=== PATIENT | male | born 1970 | race Caucasian/White ===

== ENCOUNTER 2019-10-01 11:34 | Emergency (ER) | payer OTHER ==
[2019-10-01 11:44] VITALS: RESP 16
[2019-10-01] MEDS ORDERED: HYDROmorphone 1 MG/ML 1 ML SYRINGE IM STA (11:57)
--- NOTE | 2019-10-01 12:13 | ED ---
Back Pain HPI - General Chief Complaint: Back Pain/Injury Stated Complaint: Back pain Time Seen by Provider: 10/01/19 11:36 Source: patient, EMS, RN notes reviewed Mode of arrival: EMS Limitations: no limitations - History of Present Illness Initial Comments: This a 48-year-old male presents emergency Department with chief complaint of low back pain. Patient states that 3 days ago he went to lift a desk and states that his family members helping move it states that they showed that forward causing it to twist his back. He states he felt the incident pop. Patient states he has severe low back pain with no history of back pain. Patient denies bowel bladder and incontinence or retention. Denies any abdominal pain. Patient states started Cipro for no relief of pain symptoms. Patient states she has some symptoms that radiate down his left leg to his knee. He denies any focal weakness states it's difficult to move secondary to pain. Patient states that his son is positive for chronic virus. Patient states that he does live at home with them patient's found to have fever but has no complaints of chest pain, shortness breath, headache or dizziness. - Related Data Previous Rx's Medication Instructions Recorded Cyclobenzaprine [Flexeril] 10 mg PO TID PRN #15 tab 10/01/19 HYDROcodone/APAP 7.5-325MG [[place] 1 tab PO Q6HR PRN 3 Days #12 tab 10/01/19 7.5-325] predniSONE 50 mg PO DAILY #5 tab 10/01/19 Allergies Allergy/AdvReac Type Severity Reaction Status Date / Time No Known Allergies Allergy Verified 10/01/19 11:45 Review of Systems ROS Statement: Those systems with pertinent positive or pertinent negative responses have been documented in the HPI. ROS Other: All systems not noted in ROS Statement are negative. Past Medical History Past Medical History: No Reported History History of Any Multi-Drug Resistant Organisms: None Reported Past Surgical History: Hernia Repair Past Psychological History: No Psychological Hx Reported Smoking Status: Current every day smoker Past Alcohol Use History: None Reported Past Drug Use History: None Reported General Exam Limitations: no limitations General appearance: alert, in no apparent distress Head exam: Present: atraumatic, normocephalic, normal inspection Eye exam: Present: normal appearance, PERRL, EOMI. Absent: scleral icterus, conjunctival injection, periorbital swelling ENT exam: Present: normal exam, normal oropharynx, mucous membranes moist Neck exam: Present: normal inspection, full ROM. Absent: tenderness, meningismus, lymphadenopathy Respiratory exam: Present: normal lung sounds bilaterally. Absent: respiratory distress, wheezes, rales, rhonchi, stridor Cardiovascular Exam: Present: regular rate, normal rhythm, normal heart sounds. Absent: systolic murmur, diastolic murmur, rubs, gallop, clicks GI/Abdominal exam: Present: soft, normal bowel sounds. Absent: distended, tenderness, guarding, rebound, rigid Extremities exam: Present: other (Lower extremity pulses equal bilaterally neurovascular intact equal color equal warmth) Back exam: Present: tenderness, muscle spasm, paraspinal tenderness, vertebral tenderness. Absent: full ROM Neurological exam: Present: alert, oriented X3, CN II-XII intact, reflexes normal. Absent: motor sensory deficit Skin exam: Present: warm, dry, intact, normal color. Absent: rash Course Vital Signs 10/01/19 11:42 Temperature 100.2 F H Pulse Rate 77 Respiratory 16 Rate Blood Pressure 113/78 O2 Sat by Pulse 96 Oximetry Medical Decision Making - Medical Decision Making 48-year-old male presented for low back pain. Patient had a lifting type injury. He has no red flag symptoms is neurovascularly intact. X-rays do not reveal any significant abnormality. Patient may have underlying disc herniation or disc bulging with mild radicular symptoms. I did discuss return parameters. Patient also found to have a fever most likely related to coronavirus in which his son is positive. We did discuss return parameters for this. He has no current complaints/chest pain, shortness breath, cough or any other associated symptoms. Disposition Clinical Impression: Lumbar radiculopathy, acute, Strain of lumbar region Disposition: HOME SELF-CARE Condition: Stable Instructions (If sedation given, give patient instructions): Acute Low Back Pain (ED) Additional Instructions: Please return to the Emergency Department if symptoms worsen or any other concerns. Prescriptions: Cyclobenzaprine [Flexeril] 10 mg PO TID PRN #15 tab PRN Reason: Muscle Spasm HYDROcodone/APAP 7.5-325MG [[place] 7.5-325] 1 tab PO Q6HR PRN 3 Days #12 tab PRN Reason: Pain predniSONE 50 mg PO DAILY #5 tab Is patient prescribed a controlled substance at d/c from ED?: Yes When asked, does pt state using other controlled substances?: No If prescribed controlled substance>3 days was MAPS reviewed?: Prescribed <3 Days If opioid is for acute pain is fill amount 7 days or less?: Yes If Rx opioid, was Start Talking consent form obtained?: Yes Referrals: None,Stated [Primary Care Provider] - 1-2 days Ce Thibodeaux, [Doctor of Osteopathic Medicine] - 1-2 days Time of Disposition: 13:15
[2019-10-01] MEDS ORDERED: DIAZEPAM 5 MG/ML 2 ML INJ IM STA (12:49)
--- NOTE | 2019-10-01 12:51 | XR ---
EXAMINATION TYPE: XR lumbosacral spine min 4V , 5 VIEWS DATE OF EXAM ORDERED: 10/01/2019 HISTORY: pain. COMPARISON: None. FINDINGS: There is a mild dextroscoliosis. Vertebral body height and alignment are maintained. There is no spondylolysis or spondylolisthesis. T he disc spaces are reasonably well-maintained. There is mild hypertrophic spondylosis present at L1-2 and L3-4. The facets are reasonably well-maintained. The pedicles are intact. IMPRESSION: 1. NO ACUTE OSSEOUS LESION. 2. MILD DEGENERATIVE CHANGE.
[2019-10-01] MEDS ORDERED: HYDROcodone/APAP 7.5-325MG 1 EACH TAB PO ONE (13:10)
[2019-10-01 13:22] VITALS: BP 136/72; PULSE 81; TEMP 99.8
== END 2019-10-01 13:28 | disposition home or self-care (01) ==
LOC: EC 11:34
DX: S39.012A Strain of muscle, fascia and tendon of lower back, initial encounter (principal); M54.16 Radiculopathy, lumbar region; R50.9 Fever, unspecified; Z20.828 Contact with and (suspected) exposure to other viral communicable diseases; F17.200 Nicotine dependence, unspecified, uncomplicated; X50.1XXA Overexertion from prolonged static or awkward postures, initial encounter; Y93.89 Activity, other specified
CPT/HCPCS: 72110; 99284; 96372 ×2; J3360; J1170

== ENCOUNTER 2019-10-10 08:14 | Emergency (ER) | payer SELFPAY ==
[2019-10-10] MEDS ORDERED: MORPHINE SULFATE 4 MG/ML SYRINGE IM STA (08:56)
--- NOTE | 2019-10-10 09:01 | XR ---
EXAMINATION TYPE: XR knee complete LT DATE OF EXAM: 10/10/2019 CLINICAL HISTORY: pain TECHNIQUE: Three views of the left knee are obtained. COMPARISON: None. FINDINGS: There is no acute fracture/dislocation. The tri-compartment joint spaces appear within no rmal limits. The overlying soft tissue appears unremarkable. IMPRESSION: There is no acute fracture or dislocation ICD 10 NO FRACTURE, INITIAL EVALUATION
--- NOTE | 2019-10-10 09:01 | ED ---
General Adult HPI - General Chief complaint: Extremity Injury, Lower Stated complaint: hip & knee pain Time Seen by Provider: 10/10/19 08:25 Source: patient, family Mode of arrival: wheelchair Limitations: no limitations - History of Present Illness Initial comments: Dictation was produced using [employer] dictation software. please excuse any grammatical, word or spelling errors. This patient was cared for during a federal and state declared state of emergency secondary to Covid 19 Chief Complaint: 48 yo M presents with left hip and knee pain 2 weeks. History of Present Illness: 48-year-old male who presents with left hip pain and left knee pain 2 weeks. Patient states that 2 weeks ago he was lifting a heavy desk. Patient states he lifted a really hard. While he was lifting a heavy object he noticed acute severe intense pain to his left hip and left knee. Patient states that he's been having this pain for the last 2 weeks. He was seen earlier in emergency department for back pain. She states that this morning with worsening symptoms. He states that most of his pain is to the medial left knee and over the left hip joint. It's worse he reports when he tries to bear weight. Patient denies any back pain. He does complain of some mild tingling to the lateral thigh. The ROS documented in this emergency department record has been reviewed and confirmed by me. Those systems with pertinent positive or negative responses have been documented in the HPI. All other systems are other negative and/or noncontributory. PHYSICAL EXAM: General Impression: Alert and oriented x3, acute distress secondary to pain HEENT: Normocephalic atraumatic, extra-ocular movements intact, pupils equal and reactive to light bilaterally, mucous membranes moist. Cardiovascular: Heart regular rate and rhythm Chest: Able to complete full sentences, no retractions, no tachypnea Abdomen: Bowel sounds present, abdomen soft, non-tender, non-distended, no organomegaly Musculoskeletal: Pulses present and equal in all extremities, no peripheral edema Left lower extremity: Intact range of motion of left hip with smooth internal an d external rotation. Knee flexion and extension is intact. Patient experiences pain with all movements of the left lower extremity. No joint effusion to the left knee. Skin of the lower extremity is intact. No sensory deficits. Motor: no focal deficits noted Neurological: CN II-XII grossly intact, no focal motor or sensory deficits noted Skin: Intact with no visualized rashes Psych: Normal affect and mood ED course: 48-year-old male presents with left hip and left knee pain ongoing for the last 2 weeks. She states the symptoms all started while he was lifting a desk. Signs upon arrival shows heart rate of 11, respiratory signs within acceptable limits. Physical examination of the left lower extremity appears benign. No concern for septic joint.X-ray of the hip and knee and pelvis shows no acute processes. Patient appeared clinically stable at this time. He states he feels improved after I am analgesia. Discussed with patient that he should follow-up with orthopedic surgery. Patient given contact information for on- call orthopedic surgeon Dr. Ferrell. He is told to call the office to schedule an appointment with a specialist. Patient given prescription for by mouth a nalgesia. Patient told to return to the emergency department or seek medical attention if he develops worsening symptoms especially fevers, constitutional symptoms or significantly worsening pain. Patient otherwise told to rest the joints. However he is told to stretch to prevent stiffness and maintain flexibility. - Related Data Previous Rx's Medication Instructions Recorded Cyclobenzaprine [Flexeril] 10 mg PO TID PRN #15 tab 10/01/19 HYDROcodone/APAP 7.5-325MG [[place] 1 tab PO Q6HR PRN 3 Days #12 tab 10/01/19 7.5-325] predniSONE 50 mg PO DAILY #5 tab 10/01/19 HYDROcodone/APAP 5-325MG [[place] 1 tab PO Q6HR PRN 3 Days #12 tab 10/10/19 5-325] Allergies Allergy/AdvReac Type Severity Reaction Status Date / Time No Known Allergies Allergy Verified 10/01/19 11:45 Review of Systems ROS Statement: Those systems with pertinent positive or pertinent negative responses have been documented in the HPI. ROS Other: All systems not noted in ROS Statement are negative. Past Medical History Past Medical History: No Reported History History of Any Multi-Drug Resistant Organisms: None Reported Past Surgical History: Hernia Repair Past Psychological History: No Psychological Hx Reported Smoking Status: Current every day smoker Past Alcohol Use History: None Reported Past Drug Use History: None Reported General Exam Limitations: no limitations Course Vital Signs 10/10/19 08:21 Temperature 97.8 F Pulse Rate 101 H Respiratory 24 Rate Blood Pressure 136/77 O2 Sat by Pulse 100 Oximetry Disposition Clinical Impression: Hip pain, Knee pain Disposition: HOME SELF-CARE Condition: Good Instructions (If sedation given, give patient instructions): Knee Pain (ED), Hip Pain (ED) Additional Instructions: Please contact orthopedic forensic identification specialist for outpatient appointment for evaluation of hip and knee pain. Prescriptions: HYDROcodone/APAP 5-325MG [[place] 5-325] 1 tab PO Q6HR PRN 3 Days #12 tab PRN Reason: Severe Pain Is patient prescribed a controlled substance at d/c from ED?: Yes If prescribed controlled substance>3 days was MAPS reviewed?: Prescribed <3 Days Referrals: Stewart Ferrell MD [STAFF PHYSICIAN] - 1-2 days Time of Disposition: 09:25
--- NOTE | 2019-10-10 09:02 | XR ---
EXAMINATION TYPE: XR Hip LT and AP Pelvis DATE OF EXAM: 10/10/2019 CLINICAL HISTORY: Pelvic and right hip pain. TECHNIQUE: A single AP view of the pelvis is obtained. Two views of the right hip are obtained. COMPARISON: None. FINDINGS: There is no acute fracture/dislocation evident in the pelvis. The hip and sacroiliac joints appear s ymmetric and unremarkable. The overlying soft tissue appears unremarkable.Two views of left hip show no acute fracture or dislocation. No focal lytic or sclerotic lesion seen in the proximal left femu r. The overlying soft tissue is unremarkable. IMPRESSION: There is no acute fracture or dislocation in the pelvis or left hip.
[2019-10-10] MEDS ORDERED: LIDOCAINE 5% PATCH TOPICAL STA (09:11)
[2019-10-10] MEDS ORDERED: ACET/COD 300 MG/30 MG STARTER PACK 6 TAB BTL PO STA (09:22)
[2019-10-10 09:33] VITALS: BP 116/73; PULSE 87; RESP 16; TEMP 98.7
== END 2019-10-10 09:36 | disposition home or self-care (01) ==
LOC: EC 08:14
DX: M25.552 Pain in left hip (principal); M25.562 Pain in left knee; R20.2 Paresthesia of skin; F17.200 Nicotine dependence, unspecified, uncomplicated
CPT/HCPCS: 73502; 73562; 99283; 96372; J2270